=== PATIENT | male | born 1975 | race Two or more races ===

== ENCOUNTER 2016-07-15 16:10 | Emergency (ER) | payer OTHER ==
--- NOTE | ~2016-07-15 | CO ---
Unit #: [id number] #: [id number] Patient: RAINA BILL [id number] [facility]. [place], [place] [address] [id number] MR#: [id number] NAME: RAINA BILL ROOM: Age: 40 Sex: M Admission Date: 07/15/2016 : 1975 Attending Physician: Jenni Matute M.D. Primary Care Physician: Linda Grant M.D. CONSULTATION REPORT HISTORY OF PRESENT ILLNESS A 40-year-old black male, who is currently unemployed, was sleeping about 10:00 a.m. this morning and started to complain of sharp shooting pains in the midsternal area and followed by sensation of pressure which would last for a few minutes at a time. He decided to stay in bed for another hour and a half despite recurrent sharp shooting pains, described as a pencil point piercing his chest wall. There was radiation of this pain for fraction of second towards the left shoulder, he complained of shortness of breath without any nausea and there was no diaphoresis, palpitations, dizziness, or lightheadedness. He got out of bed after an hour and a half, had some chicken McNuggets and ice tea, but as the pains persisted called the personnel clerk, who brought him to the emergency room. He was given a sublingual nitroglycerin, which relieved most of the sharp shooting discomfort, but heaviness and tightness persisted. He has had similar pains before. The patient drank large quantities of alcohol on Friday and Friday the last 2 days of the week and does drink excessive amounts of alcohol on almost every weekend. He denies any ankle edema, orthopnea, nocturnal dyspnea, palpitations, syncope, near syncope, transient ischemic attacks or strokes. There is no history of diabetes mellitus or heart murmur. He leads a very sedentary lifestyle. SOCIAL AND PERSONAL HISTORY He smokes half a pack of cigarettes a day and has done that for about 20 years. He drinks large quantities of alcohol on Saturdays and Sundays. FAMILY HISTORY No immediate member of the family including, both patent and siblings have heart disease. PAST MEDICAL HISTORY Includes periods of anxiety and hypertension. PHYSICAL EXAMINATION GENERAL: Reveals a young black male, in no acute distress. VITAL SIGNS: Blood pressure 140/92. NECK: There is no jugular venous distention, both carotids have a normal upstroke without any bruits. CARDIAC: Shows apical impulse is normal, both heart sounds are normal, no rubs or clicks are audible, there is no murmur. CHEST: Shows good air entry bilaterally without rales or rhonchi. ABDOMEN: Shows soft, nontender anterior abdominal wall. There are no masses or organomegaly. RECTAL: Not done. PROFESSOR OF ENVIRONMENTAL SCIENCE: Within normal limits. Unit #: [id number] #: [id number] Patient: RAINA BILL DIAGNOSTIC STUDIES CARDIOVASCULAR STUDIES: EKG shows normal sinus rhythm, nonspecific T-wave abnormalities in leads III and aVF. LABORATORY RESULTS: Hemoglobin is 16.1, hematocrit 46.7, 56,000 platelet count is noted. INR is 1.0. Creatinine 1.1. GFR greater than 60. Potassium 4.4. Magnesium 2.1. Troponin levels at [id number] was 0.05. DIAGNOSES 1. Chest pains atypical for significant ischemic heart disease. 2. Hypertension under inadequate control. 3. Anxiety. 4. Possible gastroesophageal reflux disease. PLAN The patient had stopped taking his amlodipine, because it gives him some strange symptoms of swelling of the hypothenar eminence of the left hand, some flushed feeling and occasional leg edema. I have advised him to stop amlodipine, continue hydrochlorothiazide 25 mg daily, start lisinopril 10 mg at bedtime, and start atenolol 25 mg daily. He is advised to discontinue his use of nicotine and moderate his alcohol intake. My office will may contact with the patient to arrange an exercise Cardiolite scan in view of multiple risk factors of smoking, hypertension, and sedentary lifestyle in a patient with chest pain with EKG abnormalities. I think EKG abnormalities are related to hypertension. He may require an echocardiogram and Doppler study to evaluate LV function in view of his heavy cigarette smoking and alcohol intake. I have advised him to follow up with Dr. Linda Grant his PCP in the next 2 weeks. He should try Pepcid [id number] 20 mg once or b.i.d. for chest pains. Dictated by... Arvind Velasquez TD: 07/16/2016 01:38 JOB #: [id number] CONSULTATION REPORT X Harvey Bartholomew MD CONSULTATION REPORT
--- NOTE | ~2016-07-15 | CR72 ---
[facility] A Service of [facility] & [facility] RADIOLOGY TEXT RESULTS PATIENT: RAINA BILL LOCATION: [facility] : 75 UNIT #: [id number] AGE: [address]: Jenni Matute MD SEX: M ORDER DR: [id number] [facility] [address] [place], [place] [address] [id number] E MR#: [id number] Acc #: [id number] NAME: RAINA BILL : 1975 SEX: M STUDY DATE/TIME: 07/15/2016 16:29 UNIT: [facility] ROOM: STUDY DESCRIPTION: CR Chest Single View Portable Attending Physician: Jenni Matute M.D. Ordering Physician: Jenni Matute M.D. Primary Care Physician: Linda Grant M.D. MEDICAL IMAGING REPORT This report is preliminary unless electronic signature is present EXAM Frontal chest 07/15/2016 INDICATIONS 40-year-old male with chest pain, short of air, lightheaded, symptoms began today, currently using tobacco. Hypertension. TECHNIQUE Frontal chest compared with 11/21/2015 FINDINGS Cardiac silhouette is borderline in size and stable. The vascularity is normal. There is no dense consolidation, effusion or pneumothorax. Calcified granulomas are present. IMPRESSION Borderline cardiomegaly unchanged. Old healed granulomatous disease and no definite superimposed active disease. Dictated by... Ciaran Gannon M.D. THIS IS AN ELECTRONICALLY VERIFIED REPORT Ciaran Gannon M.D. at 07/16/2016 4:42 PM Brayden TD: 07/16/2016 07:28 JOB #: [id number] MEDICAL IMAGING REPORT COPY
--- NOTE | ~2016-07-15 | EKG ---
PATIENT: RAINA BILL UNIT #: [id number] Ventricular Rate: 90 BPM Atrial Rate: 90 BPM P-R Interval: 178 ms QRS Duration: 80 ms Q-T Interval: 338 ms QTC Calculation(Bezet): 413 ms P Van: 46 degrees Calculated R Van: 58 degrees Calculated T Van: -8 degrees Diagnosis Line: Normal sinus rhythm Diagnosis Line: T wave abnormality, consider inferior ischemia Diagnosis Line: Abnormal ECG Diagnosis Line: When compared with ECG of 21-NOV-2015 21:06, Diagnosis Line: No significant change was found Diagnosis Line: Confirmed by GELY RIOS MD ([id number]) on Diagnosis Line: 07/16/2016 4:11:14 PM INTERPRETING MD: GABRIEL SMYTH
[~2016-07-15 16:10] MED LIST: HYDROCHLOROTHIA25 MG PO; MOBIC PO; ZITHROMAX PO
[2016-07-15 16:25] LABS: POC - CKMB <1.0 ng/mL (0.0-7.9); POC - TROPONIN <0.05 ng/mL (<=0.05)
[2016-07-15 16:29] LABS: BASOPHIL% 0.7 % (0-2.5); EOSINOPHIL# 0.1 X10e3 (0-0.7); EOSINOPHIL% 3.3 % (0.0-7.0); HEMATOCRIT 46.7 % (38.0-50.0); HEMOGLOBIN 16.1 gm/dL (13.0-16.0); LYMPHOCYTE# 1.5 X10e3 (1.0-3.5); LYMPHOCYTE% 36.5 % (17.0-45.0); MEAN CELL VOLUME 90.5 FL (83-96); MEAN CORPUSCULAR HEMOGLOBIN 31.2 PG (28-34); MEAN CORPUSCULAR HGB CONC 34.4 g/dL (30-36); MEAN PLATELET VOLUME 10.9 FL (6.5-11.5); MONOCYTE# 0.6 X10e3 (0-1.0); MONOCYTE% 13.8 % (3.0-12.0); NEUTROPHIL# 1.8 X10e3 (1.5-7.1); NEUTROPHIL% 45.7 % (40-75); RED BLOOD COUNT 5.16 X10e (3.90-5.60); RED CELL DISTRIBUTION WIDTH 15.1 % (11.0-15.5)
[2016-07-15 16:50] LABS: DIFF IND NO; PLATELET COUNT 156 X10e3 (140-420)
[2016-07-15 16:58] LABS: ALBUMIN SERUM 4.3 g/dL (3.5-5.0); ALKALINE PHOSPHATASE 46 U/L (32-92); ALT (SGPT) 17 U/L (10-40); AST (SGOT) 15 U/L (10-42); BILIRUBIN, DIRECT 0.1 mg/dL (0.0-0.2); BILIRUBIN,INDIRECT 0.3 mg/dL (0.0-0.9); BILIRUBIN,TOTAL 0.4 mg/dL (0.2-2.0); BLOOD UREA NITROGEN 14 mg/dL (9-23); BUN/CREATININE RATIO 12.72; CARBON DIOXIDE 28 mmol/L (22-31); CHLORIDE 108 mmol/L (100-111); CREATININE SERUM 1.1 mg/dL (0.6-1.4); GLOM FILT RATE Estimated ABOVE60 mL/min (>60); GLUCOSE FASTING 89 mg/dL (70-110); POTASSIUM 4.4 mmol/L (3.5-5.1); PROTEIN TOTAL SERUM 7.1 g/dL (6.0-8.3); SODIUM 140 mmol/L (135-145)
[2016-07-15] MEDS ORDERED: HYDROCHLOROTHIA25 MG PO (17:01)
[2016-07-15] MEDS ORDERED: AMLODIPINE BESYL5 MG PO (17:01)
[2016-07-15 18:06] LABS: POC - CKMB <1.0 ng/mL (0.0-7.9); POC - TROPONIN <0.05 ng/mL (<=0.05)
== END 2016-07-15 18:47 | disposition home or self-care (01) ==
LOC: CED 16:10
PROVIDERS: Emergency Medicine; Student in an Organized Health Care Education/Training Program
DX: R07.9 Chest pain, unspecified (principal); I10 Essential (primary) hypertension; F17.210 Nicotine dependence, cigarettes, uncomplicated
CPT/HCPCS: 36415; 71010; 80048; 80076; 82553; 83880; 84484; 85025; 93005; 99284